=== PATIENT | female | born 1990 | race Two or more races ===

== ENCOUNTER 2024-12-03 08:46 | Outpatient (CLI) | payer OTHER | END 2024-12-03 08:47 | disposition home or self-care (01) | LOC: PRENATAL 08:46 | PROVIDERS: ATTEND Obstetrics & Gynecology Maternal & Fetal Medicine | DX: O36.80X0 Pregnancy with inconclusive fetal viability, not applicable or unspecified (principal); Z36.82 Encounter for antenatal screening for nuchal translucency; Z14.8 Genetic carrier of other disease; Z3A.13 13 weeks gestation of pregnancy ==

== ENCOUNTER → 2025-01-20 14:36 | Outpatient (CLI) | payer OTHER | END | disposition home or self-care (01) | LOC: PRENATAL 14:36 | PROVIDERS: ATTEND Obstetrics & Gynecology Maternal & Fetal Medicine | DX: O44.00 Complete placenta previa NOS or without hemorrhage, unspecified trimester (principal); Z3A.19 19 weeks gestation of pregnancy ==

== ENCOUNTER 2025-04-13 11:26 | Outpatient (CLI) | payer OTHER | END 2025-04-13 11:30 | disposition home or self-care (01) | LOC: PRENATAL 11:26 | PROVIDERS: ATTEND Obstetrics & Gynecology Maternal & Fetal Medicine | DX: Z76.1 Encounter for health supervision and care of foundling (principal) ==

== ENCOUNTER → 2025-04-19 13:49 | Outpatient (CLI) | payer OTHER ==
[~2025-04-19 13:49] MED LIST: PRENATABS RX T1 EACH PO
== END | disposition home or self-care (01) ==
LOC: PRENATAL 13:49
PROVIDERS: ATTEND Obstetrics & Gynecology
DX: O26.849 Uterine size-date discrepancy, unspecified trimester (principal); O36.8130 Decreased fetal movements, third trimester, not applicable or unspecified; O24.419 Gestational diabetes mellitus in pregnancy, unspecified control; Z3A.35 35 weeks gestation of pregnancy

== ENCOUNTER → 2025-05-21 08:16 | Outpatient (CLI) | payer OTHER | END | disposition home or self-care (01) | LOC: PRENATAL 08:16 | PROVIDERS: ATTEND Obstetrics & Gynecology Maternal & Fetal Medicine | DX: O26.849 Uterine size-date discrepancy, unspecified trimester (principal); O36.8199 Decreased fetal movements, unspecified trimester, other fetus; O24.419 Gestational diabetes mellitus in pregnancy, unspecified control; Z3A.35 35 weeks gestation of pregnancy ==

== ENCOUNTER 2025-06-02 13:45 | Inpatient (IN) | payer OTHER ==
[~2025-06-02] VITALS: Ht 160 cm; Wt 63.5 kg
[2025-06-08 16:26] VITALS: BP 128/75
[2025-06-08] MEDS ORDERED: PRENATABS RX T1 EACH PO (17:32)
[2025-06-08 17:44] LABS: BASO % 0.3 % (0.1-1.2); EOS # 0.11 (0.04-0.54); EOS % 1.4 % (0.7-7.0); LYMPH # 1.62 (1.18-3.74); LYMPH % 21.1 % (19.3-53.1); MEAN PLATELET VOLUME 9.00 fl (9.4-12.4); MONO # 0.55 (0.24-0.82); MONO % 7.2 % (4.7-12.5); NEUT # 5.34 (1.56-6.13); NEUT % 69.7 % (34.0-71.1); RED CELL DISTRIBUTION WIDTH 12.1 % (11.6-14.4)
[2025-06-08] MEDS ORDERED: RINGERS SOLUTION,LACTATED 1,000 ML IV SCH (17:45)
[2025-06-08] MEDS ORDERED: OXYTOCIN 500 ML IV SCH ×2 (17:45→22:15)
[2025-06-08] MEDS ORDERED: MISOPROSTOL 25 MCG/4 ML GEL.W.APPL ONE (18:02)
[2025-06-08 18:14] LABS: INR < 0.93
[2025-06-08 18:20] LABS: ALT/SGPT 17.0 U/L (12-78); AST/SGOT 14.0 U/L (15-37); BILIRUBIN TOTAL 0.3 mg/dL (0.3-1.2); BUN CREA RATIO 31.0 (7.0-25.0); CREATININE SERUM 0.64 mg/dL (0.55-1.02); GFR 106.87; GLOBULINA 3.9 G/DL (2.4-3.5); GLUCOSE FASTING 116.0 mg/dL (65-100); OSMOLALITY SERUM 279.0 MOSM/KG (275-295)
[2025-06-08 18:23] LABS: URINE BILIRRUBIN NEGATIVE (NEGATIVE); URINE BLOOD LARGE; URINE GLUCOSE NEGATIVE (NEGATIVE); URINE KETONE NEGATIVE (NEGATIVE); URINE LEUKOCYTE NEGATIVE; URINE NITRATE NEGATIVE; URINE PROTEIN 30 (NEGATIVE); URINE UROBILINOGEN 0.2 E.U./dl
[2025-06-08] MEDS ORDERED: AMPICILLIN SODIUM 2,000 MG VIAL ONE (18:32)
[2025-06-08 18:41] LABS: URINE APPEARANCE CLOUDY; URINE COLOR YELLOW
[2025-06-08] MEDS ORDERED: MISOPROSTOL 25 MCG/4 ML GEL.W.APPL VAG ONE (18:45)
[2025-06-08 18:49] LABS: URINE BACTERIA MANY; URINE CRYSTALS MODERATE /HPF
[2025-06-08 18:50] LABS: URINE MUCUS SCANT
[2025-06-08] MEDS ORDERED: AMPICILLIN SODIUM 2,000 MG VIAL IV ONE (19:00)
[2025-06-08 20:44] VITALS: BP 135/78
[2025-06-08] MEDS ORDERED: AMPICILLIN SODIUM 1,000 MG VIAL IV SCH (21:00)
[2025-06-08] MEDS ORDERED: OXYTOCIN 20 UNITS/1000ML RL PIGGYBAG IV ONE (23:18)
[2025-06-08] MEDS ORDERED: LIDOCAINE HCL 1% 10ML VIAL ONE (23:18)
[2025-06-08] MEDS ORDERED: ERYTHROMYCIN BASE OPHT 1GM EACH TUBE OP ONE (23:18)
[2025-06-08] MEDS ORDERED: CHLORHEXIDINE GLUCONATE 120 ML BOTTLE TOP ONE (23:18)
[2025-06-09] VITALS (8 sets, daily range): BP systolic 100–132; BP diastolic 60–86
[2025-06-09] MEDS ORDERED: CHLORHEXIDINE GLUCONATE 120 ML BOTTLE TOP ONE (00:45)
[2025-06-09] MEDS ORDERED: ERYTHROMYCIN BASE OPHT 1GM EACH TUBE OP ONE (00:45)
[2025-06-09] MEDS ORDERED: OXYTOCIN 1,000 ML IV SCH (00:45)
[2025-06-09 06:45] LABS: BASO % 0.2 % (0.1-1.2); EOS # 0.01 (0.04-0.54); EOS % 0.1 % (0.7-7.0); LYMPH # 1.40 (1.18-3.74); LYMPH % 9.1 % (19.3-53.1); MEAN PLATELET VOLUME 9.10 fl (9.4-12.4); MONO # 0.73 (0.24-0.82); MONO % 4.7 % (4.7-12.5); NEUT # 13.25 (1.56-6.13); NEUT % 85.6 % (34.0-71.1); RED CELL DISTRIBUTION WIDTH 12.0 % (11.6-14.4)
[2025-06-09] MEDS ORDERED: PNV,CALCIUM 72/IRON/FOLIC ACID 1 TAB TABLET PO SCH (09:00)
[2025-06-10 00:40] VITALS: BP 109/71
[2025-06-10 08:25] VITALS: BP 120/80
== END 2025-06-10 13:31 | disposition home or self-care (01) | DRG 807 ==
LOC: OB/GYN 06-08 17:14 → LDR 06-08 17:14 → OB/GYN 06-09 02:51
PROVIDERS: ADMIT Obstetrics & Gynecology; ATTEND Obstetrics & Gynecology
PROC: 10E0XZZ Delivery of Products of Conception, External Approach (ICD-10-PCS; principal; 2025-06-08)
PROC: 4A1HXCZ Monitoring of Products of Conception, Cardiac Rate, External Approach (ICD-10-PCS; 2025-06-08)
DX: O80 Encounter for full-term uncomplicated delivery (principal); Z37.0 Single live birth; Z3A.39 39 weeks gestation of pregnancy